=== PATIENT | male | born 1970 | race Caucasian/White ===

== ENCOUNTER 2017-05-15 13:47 | Emergency (ER) | payer MEDICARE, MEDICAID ==
[~2017-05-15] VITALS: Ht 185.4 cm; Wt 90.0 kg
[~2017-05-15 13:47] MED LIST: BACI15OI TOP; CLIN-80 PO
[2017-05-15 14:00] VITALS: BP 119/83
[2017-05-15] MEDS ORDERED: LIDOcaine 1% 30ml preserv. free vial IJ ONE (14:35)
[2017-05-15] MEDS ORDERED: TETanus/Pertussis (Acell)/Diphther VAC/PF (Tdap-Adult) 0.5ml syringe IM ONE (14:35)
[2017-05-15] MEDS ORDERED: CEPH500C2 PO (14:59)
== END 2017-05-15 15:08 | disposition home or self-care (01) ==
LOC: ER 13:48
DX: S61.217A Laceration without foreign body of left little finger without damage to nail, initial encounter (principal); Z88.2 Allergy status to sulfonamides; W26.8XXA Contact with other sharp object(s), not elsewhere classified, initial encounter; Y93.89 Activity, other specified; Y92.89 Other specified places as the place of occurrence of the external cause; Y99.8 Other external cause status
CPT/HCPCS: 12001; 90471; 90715; 99283; A6222; J3490

== ENCOUNTER 2018-11-06 20:23 | Emergency (ER) | payer MEDICARE, MEDICAID ==
[~2018-11-06] VITALS: Ht 185.4 cm; Wt 111.4 kg
[~2018-11-06 20:23] MED LIST changes: -CLIN-80 PO; +CLIN-96 PO
[2018-11-06] MEDS ORDERED: dexamethasone sod phosphate 10mg/ml inj IM STA (20:41)
[2018-11-06] MEDS ORDERED: AZIT250T83 PO (20:42)
[2018-11-06 21:23] VITALS: BP 150/95
== END 2018-11-06 21:28 | disposition home or self-care (01) ==
LOC: ER 20:24
DX: H66.92 Otitis media, unspecified, left ear (principal); N40.0 Benign prostatic hyperplasia without lower urinary tract symptoms; Z88.8 Allergy status to other drugs, medicaments and biological substances; Z79.2 Long term (current) use of antibiotics
CPT/HCPCS: 96372; 99283; J1100

== ENCOUNTER 2019-01-17 16:23 | Emergency (ER) | payer MEDICAID, MEDICARE ==
[~2019-01-17] VITALS: Ht 185.4 cm; Wt 109.1 kg
[~2019-01-17 16:23] MED LIST changes: +CLIN-90 PO; -CLIN-96 PO
[2019-01-17] MEDS ORDERED: AZIT500T2 PO (17:18)
[2019-01-17] MEDS ORDERED: azithromycin 250mg tablet PO ONE (17:20)
[2019-01-17] MEDS ORDERED: ketorolac trometh inj. 60 MG/2 ML VIAL IM ONE (17:25)
[2019-01-17 18:28] VITALS: BP 138/77
== END 2019-01-17 18:28 | disposition home or self-care (01) ==
LOC: ER 16:23
DX: H66.92 Otitis media, unspecified, left ear (principal); Z98.890 Other specified postprocedural states; Z88.2 Allergy status to sulfonamides; Z88.1 Allergy status to other antibiotic agents; Z88.8 Allergy status to other drugs, medicaments and biological substances; Z79.2 Long term (current) use of antibiotics
CPT/HCPCS: 96372; 99283; J1885

== ENCOUNTER 2019-03-01 15:31 | Emergency (ER) | payer MEDICARE, MEDICAID ==
[~2019-03-01] VITALS: Ht 185.4 cm; Wt 109.9 kg
[2019-03-01 15:35] VITALS: BP 147/87
[2019-03-01] MEDS ORDERED: ketorolac tromethamine 15mg/ml inj. IM ONE (16:55)
[2019-03-01] MEDS ORDERED: AZIT250T83 PO (16:59)
== END 2019-03-01 17:24 | disposition home or self-care (01) ==
LOC: ER 15:31
DX: H92.02 Otalgia, left ear (principal); Z98.890 Other specified postprocedural states; Z88.1 Allergy status to other antibiotic agents; Z88.8 Allergy status to other drugs, medicaments and biological substances
CPT/HCPCS: 96372; 99283; J1885

== ENCOUNTER 2019-04-06 13:27 | Emergency (ER) | payer MEDICARE, MEDICAID ==
[~2019-04-06] VITALS: Ht 185.4 cm; Wt 107.0 kg
[2019-04-06 13:41] VITALS: BP 138/91
[2019-04-06] MEDS ORDERED: LIDOcaine 1% W/epiNEPHrine 1:200,000 10ml vial IJ ONE (14:20)
[2019-04-06] MEDS ORDERED: CLIN300C53 PO (14:50)
== END 2019-04-06 15:17 | disposition home or self-care (01) ==
LOC: ER 13:27
DX: L02.31 Cutaneous abscess of buttock (principal); Z98.890 Other specified postprocedural states; Z88.1 Allergy status to other antibiotic agents; Z88.8 Allergy status to other drugs, medicaments and biological substances
CPT/HCPCS: 10060; 99283

== ENCOUNTER 2019-04-09 21:31 | Emergency (ER) | payer MEDICARE, MEDICAID ==
[~2019-04-09 21:31] MED LIST changes: +CLIN300C53 PO
== END 2019-04-09 22:38 | disposition left against medical advice (07) ==
LOC: ER 21:31
DX: L02.91 Cutaneous abscess, unspecified (principal); Z53.21 Procedure and treatment not carried out due to patient leaving prior to being seen by health care provider

== ENCOUNTER 2019-04-19 13:53 | Emergency (ER) | payer MEDICARE, MEDICAID ==
[~2019-04-19] VITALS: Ht 185.4 cm; Wt 108.0 kg
[~2019-04-19 13:53] MED LIST changes: -CLIN300C53 PO
[2019-04-19 14:15] VITALS: BP 148/84
[2019-04-19 14:41] LABS: CLARITY,URINE CLEAR (Clear); COLOR,URINE YELLOW (Yellow); GLUCOSE, URINE NEGATIVE (Neg); KETONES,URINE NEGATIVE (Neg); LEUKOCYTE ESTERASE ,URINE NEGATIVE (Neg); NITRITES, URINE NEGATIVE (Neg); OCCULT BLOOD,URINE NEGATIVE (Neg); PROTEIN,URINE NEGATIVE (Neg); UROBILINOGEN,URINE 0.2 E.U/dL (0.2-1.0)
[2019-04-19 14:48] LABS: UA COLLECTION TYPE CLN CATCH MIDSTREAM
[2019-04-19] MEDS ORDERED: ketorolac trometh inj. 60 MG/2 ML VIAL IM ONE (15:20)
== END 2019-04-19 15:40 | disposition home or self-care (01) ==
LOC: ER 13:55
DX: M54.9 Dorsalgia, unspecified (principal); R10.9 Unspecified abdominal pain; Z98.890 Other specified postprocedural states; Z88.2 Allergy status to sulfonamides; Z88.8 Allergy status to other drugs, medicaments and biological substances; Z79.899 Other long term (current) drug therapy
CPT/HCPCS: 81003; 96372; 99283; J1885

== ENCOUNTER 2019-05-28 22:18 | Emergency (ER) | payer MEDICARE, MEDICAID ==
[~2019-05-28] VITALS: Ht 182.9 cm; Wt 106.8 kg
[~2019-05-28 22:18] MED LIST changes: -CLIN-90 PO; +CLIN-97 PO
[2019-05-28] MEDS ORDERED: CLIN-97 PO (22:50)
[2019-05-28 23:09] VITALS: BP 162/95
--- NOTE | 2019-05-29 13:20 | NUR ---
PT CALLED IN STATING THE RX HE WAS GIVEN LAST NIGHT HAD HIS LAST NAME SPELLED "KIPPER." REVIEWED CHART PT WAS REG "KIPPER" HAS BEEN CORRECTED TO CORRECT SPELLING IN THE COMPUTER. CALLED RX WITH CORRECT SPELLING OF LAST NAME INTO [facility] [address] AT 1311.
== END 2019-05-28 23:10 | disposition home or self-care (01) ==
LOC: ER 22:19
DX: L02.416 Cutaneous abscess of left lower limb (principal); Z86.14 Personal history of Methicillin resistant Staphylococcus aureus infection; Z88.2 Allergy status to sulfonamides; Z88.8 Allergy status to other drugs, medicaments and biological substances; Z79.2 Long term (current) use of antibiotics; Z79.899 Other long term (current) drug therapy
CPT/HCPCS: 99283

== ENCOUNTER 2019-07-01 17:16 | Emergency (ER) | payer MEDICARE, MEDICAID ==
[~2019-07-01] VITALS: Ht 185.4 cm; Wt 109.0 kg
[2019-07-01 17:22] VITALS: BP 135/71
[2019-07-01] MEDS ORDERED: clindamycin 150mg capsule PO ONE (17:40)
[2019-07-01] MEDS ORDERED: ketorolac trometh inj. 60 MG/2 ML VIAL IM ONE (17:45)
[2019-07-01] MEDS ORDERED: TETanus/Pertussis (Acell)/Diphther VAC/PF (Tdap-Adult) 0.5ml syringe IMVAC ONE (17:55)
[2019-07-01] MEDS ORDERED: CLIN150C2 PO (18:26)
== END 2019-07-01 18:29 | disposition home or self-care (01) ==
LOC: ER 17:17
DX: L03.012 Cellulitis of left finger (principal); M25.442 Effusion, left hand; M79.645 Pain in left finger(s); Z86.14 Personal history of Methicillin resistant Staphylococcus aureus infection; Z98.890 Other specified postprocedural states; Z79.2 Long term (current) use of antibiotics; Z79.899 Other long term (current) drug therapy
CPT/HCPCS: 73140; 90471; 90715; 96372; 99284; J1885

== ENCOUNTER 2019-07-03 18:24 | Emergency (ER) | payer MEDICARE, MEDICAID ==
[~2019-07-03] VITALS: Ht 185.4 cm; Wt 108.5 kg
[~2019-07-03 18:24] MED LIST changes: +CLIN150C2 PO
[2019-07-03 18:51] VITALS: BP 156/81
== END 2019-07-03 20:36 | disposition home or self-care (01) ==
LOC: ER 18:25
DX: L02.512 Cutaneous abscess of left hand (principal); Z86.14 Personal history of Methicillin resistant Staphylococcus aureus infection; Z98.890 Other specified postprocedural states; Z88.3 Allergy status to other anti-infective agents; Z88.1 Allergy status to other antibiotic agents; Z88.8 Allergy status to other drugs, medicaments and biological substances
CPT/HCPCS: 99284

== ENCOUNTER 2019-07-28 20:00 | Emergency (ER) | payer MEDICARE, MEDICAID ==
[~2019-07-28] VITALS: Ht 182.9 cm; Wt 108.0 kg
[~2019-07-28 20:00] MED LIST changes: -CLIN150C2 PO
[2019-07-28 20:04] VITALS: BP 148/88
[2019-07-28] MEDS ORDERED: fluconazole 100mg tablet PO ONE (20:55)
== END 2019-07-28 21:50 | disposition home or self-care (01) ==
LOC: ER 20:02
DX: L29.0 Pruritus ani (principal); R21 Rash and other nonspecific skin eruption; Z86.14 Personal history of Methicillin resistant Staphylococcus aureus infection; Z98.890 Other specified postprocedural states; Z88.1 Allergy status to other antibiotic agents; Z88.2 Allergy status to sulfonamides; Z88.8 Allergy status to other drugs, medicaments and biological substances; Z79.2 Long term (current) use of antibiotics
CPT/HCPCS: 99283

== ENCOUNTER 2019-11-07 16:02 | Emergency (ER) | payer MEDICARE, MEDICAID ==
[~2019-11-07] VITALS: Ht 182.9 cm; Wt 109.1 kg
[2019-11-07] MEDS ORDERED: NEOM10DR45 OT (17:13)
[2019-11-07 17:23] VITALS: BP 125/70
== END 2019-11-07 17:25 | disposition home or self-care (01) ==
LOC: ER 16:02
DX: H60.92 Unspecified otitis externa, left ear (principal); H91.92 Unspecified hearing loss, left ear; Z86.14 Personal history of Methicillin resistant Staphylococcus aureus infection; Z98.890 Other specified postprocedural states; Z88.8 Allergy status to other drugs, medicaments and biological substances; Z79.2 Long term (current) use of antibiotics; Z79.899 Other long term (current) drug therapy
CPT/HCPCS: 99283

== ENCOUNTER 2020-02-08 20:13 | Emergency (ER) | payer MEDICARE, MEDICAID ==
[~2020-02-08] VITALS: Ht 182.9 cm; Wt 109.1 kg
[2020-02-08 20:14] VITALS: BP 135/90
[2020-02-08] MEDS ORDERED: CEPH500C5 PO (20:55)
[2020-02-09] MEDS ORDERED: DOXY100C43 PO ×2 (20:56→21:42)
== END 2020-02-08 21:38 | disposition home or self-care (01) ==
LOC: ER 20:13
DX: L03.113 Cellulitis of right upper limb (principal); F17.200 Nicotine dependence, unspecified, uncomplicated; Z88.2 Allergy status to sulfonamides; Z88.8 Allergy status to other drugs, medicaments and biological substances; Z79.899 Other long term (current) drug therapy
CPT/HCPCS: 99283

== ENCOUNTER 2020-10-22 17:33 | Emergency (ER) | payer MEDICARE, MEDICAID ==
[~2020-10-22] VITALS: Ht 185.4 cm; Wt 106.8 kg
[~2020-10-22 17:33] MED LIST changes: +CEPH-585 PO; +DOXY100C43 PO
[2020-10-22 17:44] VITALS: BP 152/97
[2020-10-22] MEDS ORDERED: MECL-159 PO (18:37)
== END 2020-10-22 19:46 | disposition home or self-care (01) ==
LOC: ER 17:33
DX: H81.10 Benign paroxysmal vertigo, unspecified ear (principal); R11.2 Nausea with vomiting, unspecified; N40.0 Benign prostatic hyperplasia without lower urinary tract symptoms; Z86.14 Personal history of Methicillin resistant Staphylococcus aureus infection; Z98.890 Other specified postprocedural states; Z88.2 Allergy status to sulfonamides; Z88.8 Allergy status to other drugs, medicaments and biological substances; Z79.2 Long term (current) use of antibiotics; Z79.899 Other long term (current) drug therapy
CPT/HCPCS: 99282

== ENCOUNTER 2020-12-24 15:17 | Emergency (ER) | payer MEDICARE, MEDICAID ==
[~2020-12-24] VITALS: Ht 185.4 cm; Wt 111.4 kg
[~2020-12-24 15:17] MED LIST changes: +MECL-159 PO
[2020-12-24 16:13] VITALS: BP 153/116
== END 2020-12-24 17:44 | disposition home or self-care (01) ==
LOC: ER 15:19
DX: B34.9 Viral infection, unspecified (principal); R51.9 Headache, unspecified; R05.9 Cough, unspecified; R09.89 Other specified symptoms and signs involving the circulatory and respiratory systems; Z86.14 Personal history of Methicillin resistant Staphylococcus aureus infection; Z98.890 Other specified postprocedural states; Z88.1 Allergy status to other antibiotic agents; Z88.8 Allergy status to other drugs, medicaments and biological substances; Z79.2 Long term (current) use of antibiotics; Z79.899 Other long term (current) drug therapy
CPT/HCPCS: 99282

== ENCOUNTER 2021-05-02 14:30 | Outpatient (CLI) | payer MEDICARE, MEDICAID ==
[~2021-05-02] VITALS: Ht 185.4 cm; Wt 111.1 kg
[~2021-05-02 14:30] MED LIST changes: -CEPH-585 PO
[2021-05-02] MEDS ORDERED: AZO1OS EACHEYE (15:53)
[2021-05-02] MEDS ORDERED: BACL-11 PO (15:53)
[2021-05-02] MEDS ORDERED: [UNRECOGNIZED DRUG - OTHER] LEFT EAR (15:53)
[2021-05-02] MEDS ORDERED: LORA10CA PO (15:53)
[2021-05-02] MEDS ORDERED: MELO15TA13 PO (15:53)
[2021-05-02] MEDS ORDERED: FLUT16SP2 BOTHNARES (15:53)
[2021-05-02] MEDS ORDERED: ALPR1TAB2 PO (15:53)
[2021-05-02] MEDS ORDERED: HYDR-3972 PO (15:53)
[2021-05-02 16:05] LABS: BASOPHILS % (AUTO) 0.6 % (0-1); EOSINOPHILS # (AUTO) 0.4 X10'3 (0-0.9); EOSINOPHILS % (AUTO) 5.6 % (0-6); LYMPHOCYTES % (AUTO) 25.1 % (21-51); MEAN CORPUSCULAR HGB CONC 34.1 g/dL (33.0-36.5); MEAN CORPUSCULAR VOLUME 82.2 FL (78-98); MEAN PLATELET VOLUME 8.5 FL (7.4-10.4); MONOCYTES # (AUTO) 0.5 X10'3 (0-0.9); MONOCYTES % (AUTO) 6.8 % (2-12); NEUTROPHILS # (AUTO) 4.8 X10'3 (1.8-7.7); NEUTROPHILS % (AUTO) 61.9 % (42-75); PRE OP HEMATOCRIT 53.8 % (42.0-52.0); PRE OP PLATELET COUNT 176 X10'3 (140-440); RED BLOOD COUNT 6.55 X10'6 (4.70-6.10); RED CELL DISTRIBUTION WIDTH 14.5 % (11.5-14.5)
[2021-05-02 16:09] LABS: PRE OP HEMOGLOBIN 18.3 g/dL (14.0-17.9)
[2021-05-02 16:15] LABS: PRE OP PROTIME 10.4 SECONDS (9.0-12.0)
[2021-05-02 16:23] LABS: ALBUMIN/GLOBULIN RATIO 1.1 (1.1-1.5); ALKALINE PHOSPHATASE 45 IU/L (46-116); BLOOD UREA NITROGEN 21 MG/DL (7-18); BUN/CREATININE RATIO 17.1 (5.4-32.0); CALCIUM 9.4 MG/DL (8.5-10.1); CHLORIDE 102 MMOL/L (99-107); CREATININE 1.23 MG/DL (0.60-1.10); PRE OP ALT 32 U/L (30-65); PRE OP ANION GAP 7 (8-16); PRE OP AST 17 U/L (10-37); PRE OP BILIRUB, TOTAL 0.6 MG/DL (0.0-1.0); PRE OP GLUCOSE 104 MG/DL (70-104); PRE OP SODIUM 140 MMOL/L (135-145); TOTAL CARBON DIOXIDE 31.1 MMOL/L (24-32); TOTAL PROTEIN 7.5 G/DL (6.4-8.2); eGFR 62 ML/MIN
[2021-05-09] MEDS ORDERED: ringers solution, lacted 1,000 ML IV SCH (05:00)
[2021-05-09] MEDS ORDERED: famotidine 20mg tablet PO ONE (05:30)
[2021-05-09] MEDS ORDERED: diazepam 5mg tablet PO ONE (05:30)
[2021-05-09] MEDS ORDERED: oxymetazoline 15 ML nasal spray NS ONE (05:30)
[2021-06-07] MEDS ORDERED: AMLO5TAB16 PO (15:46)
== END 2021-05-02 23:59 | disposition home or self-care (01) ==
LOC: PRE-OP 14:30 → EDSTATUS 05-09 08:00
PROVIDERS: ATTEND Otolaryngology
DX: Z01.812 Encounter for preprocedural laboratory examination (principal); Z20.822 Contact with and (suspected) exposure to COVID-19
CPT/HCPCS: 36415; 80053; 85025; 85576; 85610; 85730; 93005; J7120; U0003; U0005

== ENCOUNTER 2021-06-13 05:58 | Day surgery (SDC) | payer MEDICARE, MEDICAID ==
[2021-06-07 16:11] LABS: BASOPHILS # (AUTO) 0.1 X10'3 (0-0.2); BASOPHILS % (AUTO) 0.9 % (0-1); EOSINOPHILS # (AUTO) 0.4 X10'3 (0-0.9); LYMPHOCYTES # (AUTO) 2.3 X10'3 (1.1-4.8); LYMPHOCYTES % (AUTO) 33.4 % (21-51); MEAN CORPUSCULAR HEMOGLOBIN 27.9 PG (27.0-31.0); MEAN CORPUSCULAR HGB CONC 34.1 g/dL (33.0-36.5); MEAN CORPUSCULAR VOLUME 81.6 FL (78-98); MEAN PLATELET VOLUME 8.1 FL (7.4-10.4); MONOCYTES # (AUTO) 0.6 X10'3 (0-0.9); MONOCYTES % (AUTO) 8.9 % (2-12); NEUTROPHILS # (AUTO) 3.5 X10'3 (1.8-7.7); NEUTROPHILS % (AUTO) 50.8 % (42-75); PRE OP HEMATOCRIT 53.1 % (42.0-52.0); PRE OP PLATELET COUNT 172 X10'3 (140-440); RED CELL DISTRIBUTION WIDTH 13.8 % (11.5-14.5)
[2021-06-07 16:14] LABS: PRE OP HEMOGLOBIN 18.1 g/dL (14.0-17.9)
[2021-06-07 16:24] LABS: PRE OP INR 1.1 INR; PRE OP PROTIME 10.9 SECONDS (9.0-12.0)
[2021-06-07 16:27] LABS: ALBUMIN 4.3 G/DL (3.4-5.0); ALBUMIN/GLOBULIN RATIO 1.2 (1.1-1.5); ALKALINE PHOSPHATASE 45 IU/L (46-116); BLOOD UREA NITROGEN 24 MG/DL (7-18); CHLORIDE 101 MMOL/L (99-107); CREATININE 1.33 MG/DL (0.60-1.10); PRE OP ALT 42 U/L (30-65); PRE OP ANION GAP 9 (8-16); PRE OP AST 35 U/L (10-37); PRE OP BILIRUB, TOTAL 0.8 MG/DL (0.0-1.0); PRE OP GLUCOSE 93 MG/DL (70-104); PRE OP POTASSIUM 3.7 MMOL/L (3.4-5.1); PRE OP SODIUM 138 MMOL/L (135-145); TOTAL CARBON DIOXIDE 27.7 MMOL/L (24-32); TOTAL PROTEIN 7.9 G/DL (6.4-8.2); eGFR 56 ML/MIN
[~2021-06-13] VITALS: Ht 185.4 cm; Wt 116.0 kg
[2021-06-13] VITALS (16 sets, daily range): BP systolic 131–159; BP diastolic 85–107
--- NOTE | 2021-06-13 03:36 | NUR ---
PT HAS MEDT ALL DC CRITERIA. IV DC'D WITH CANULA INTACT. DC INSTRUCTIONS REVIEWED ALONG WITH DR HEARN SPECIFIC INSTRUCTIONS. PT GIVEN EXTRA 4X4 AND IRRIGATION 60CC SYRINGE WITH BASIN, OCEAN SPRAY, AFRIN AND MUPIROCIN. PT VERBALIZED UNDERSTANDING OF ALL INSTRUCTIONS AND REFUSED RX OF PAIN MEDICATION FROM DR MANCILLA. PT WHEELED OUT TO GET PERSONAL BELONGINGS FROM REGISTRATION. PT BECAME UPSET WHEN HE ASKED IF HE COULD GET UP FROM THE WHEELCHAIR TO PUT IN HIS CONTACTS IN THE MEN'S BATHROOM, I EXPLAINED WE DO NOT LIKE PT'S TO GET UP OUT OF THE WHEELCHAIR UNTIL WE GET THEM TO THEIR PRIVATE VEHICLE TO GO HOME. PT BECAME UPSET AND ASKED WHY I DIDN'T LET HIM PUT HIS CONTACTS WHILE WE WERE IN PACU. I EXPLAINED HE NEVER ASKED ME TO PUT THEM IN WHILE WE WERE IN PACU, HE CALLED ME A LIAR. HE RESPONDED WITH "YOU WERE SO GREAT UPSTAIRS, WHY ARE YOU ARGUING WITH THE PATIENT, I'M GOING TO CALL THE FIRE MANAGEMENT TECHNICIAN AND REPORT YOU." I TOLD HIM THAT I WOULD WHEEL HIM TO THE BATHROOM AFTER HE PICKED UP HIS BELONGINGS FROM REGISTRATION. HE STARTED YELLING AT ME SO I SAID FINE I WILL TAKE YOU TO THE BATHROOM. PT LEFT REGISTRATION WAITING TO GIVE BACK HIS BELONGINGS. PT WENT TO THE MEN'S BATHROOM AND PUT IN HIS CONTACT. PT'S RIDE WAITING, I WHEELED PT TO VEHICLE AND WISHED HIM A SPEEDY RECOVERY. Addendum: 06/13/21 at 1416 by Marisela Obando RN, RN Amended: Links added.
[~2021-06-13 05:58] MED LIST changes: +ALPR1TAB2 PO; +AMLO5TAB16 PO; +AZO1OS EACHEYE; -BACI15OI TOP; +BACL-11 PO; -CLIN-97 PO; -DOXY100C43 PO; +FLUT16SP2 BOTHNARES; +HYDR-3972 PO; +LORA10CA PO; -MECL-159 PO; +MELO15TA13 PO; +[UNRECOGNIZED DRUG - OTHER] LEFT EAR; +diazepam 5mg tablet PO ONE; +famotidine 20mg tablet PO ONE; +ringers solution, lacted 1,000 ML IV SCH
[2021-06-13] MEDS: oxymetazoline 15 ML nasal spray NS PRN ×3 (08:50→12:54)
[2021-06-13] MEDS ORDERED: hydrALAZINE 20mg/ml inj. IV PRN (09:00)
[2021-06-13] MEDS ORDERED: morphine 2 MG/ML inj. syringe IV PRN (09:00)
[2021-06-13] MEDS ORDERED: ringers solution, lacted 1,000 ML IV SCH (09:00)
[2021-06-13] MEDS ORDERED: labetalol 5mg/ml 20ml inj. IV PRN (09:00)
[2021-06-13] MEDS ORDERED: ondansetron/PF 4mg/2ml inj IV PRN (09:00)
[2021-06-13] MEDS ORDERED: meperidine/PF 25mg/ml syringe IV PRN (09:00)
[2021-06-13] MEDS ORDERED: fentaNYL/PF 50MCG/1 ML 2ML syringe ONE (09:05)
[2021-06-13] MEDS ORDERED: midazolam 1 mg/ML 2ml injection ONE (09:05)
[2021-06-13] MEDS ORDERED: LIDOcaine 1% W/epiNEPHrine 1:100,000 20ml vial IJ ONE (09:30)
[2021-06-13] MEDS ORDERED: cocaine 4% topical solution 4ml bottle TP ONE (09:30)
[2021-06-13] MEDS ORDERED: mupirocin 2% cream 15gm TP ONE (09:30)
[2021-06-13] MEDS ORDERED: oxymetazoline 15 ML nasal spray NS ONE (09:30)
[2021-06-13] MEDS ORDERED: rocuronium 10mg/ml inj IV ONE (09:45)
[2021-06-13] MEDS ORDERED: labetalol 20mg/4ml (5mg/ml) syringe IV ONE (09:45)
[2021-06-13] MEDS ORDERED: sevoflurane 250ml liquid IH ONE (09:45)
--- NOTE | 2021-06-13 11:19 | NUR ---
Received from OR via AIRAM, accompanied by Anesthesiologist DR DANIELS and report given by Anesthesiolgist. PT PRSENTS WITH PIV 20G RIGHT HAND, NASAL PACKIN CDI, VSS. Addendum: 06/13/21 at 1140 by Marisela Obando RN, RN Amended: Links added.
[2021-06-13] MEDS ORDERED: naloxone 0.4 mg/ml inj ONE (11:28)
[2021-06-13] MEDS ORDERED: ePHEDrine 50MG/ML INJ. ONE (11:28)
[2021-06-13] MEDS ORDERED: propofol inj 20 ML IV ONE (11:28)
[2021-06-13] MEDS ORDERED: dexamethasone sod phosphate 4mg/ml inj. ONE (11:28)
[2021-06-13] MEDS ORDERED: LIDOcaine 2% (20mg/ml) 5ml vial ONE (11:28)
[2021-06-13] MEDS ORDERED: ondansetron/PF 4mg/2ml inj ONE (11:28)
[2021-06-13] MEDS ORDERED: acetaminophen 1,000mg/100ml IV 100 ML IV ONE (11:45)
[2021-06-13] MEDS: morphine 4 MG/ML inj SYRINge IV PRN ×2 (11:45→11:52)
[2021-06-13] MEDS ORDERED: salt irrigation nasal spray 45 ML SPRAY NS PRN (11:55)
[2021-06-13] MEDS: meperidine/PF 25mg/ml syringe IV PRN ×2 (11:57→12:05)
[2021-06-13] MEDS ORDERED: HYDROcodone/acetaminophen 10/325mg tab PO ONE (12:25)
== END 2021-06-13 13:36 | disposition home or self-care (01) ==
LOC: PAS 05:58
PROVIDERS: ATTEND Otolaryngology
DX: J34.2 Deviated nasal septum (principal); J34.3 Hypertrophy of nasal turbinates; J33.8 Other polyp of sinus; J32.8 Other chronic sinusitis; Z20.822 Contact with and (suspected) exposure to COVID-19; Z79.899 Other long term (current) drug therapy; Z79.01 Long term (current) use of anticoagulants
CPT/HCPCS: 30140; 30520; 31237; 36415; 80053; 82948; 85025; 85576; 85610; 85730; 87635; A6402; C9250; C9803; J0131; J1100; J2175; J2250; J2270; J2310; J2405; J2704; J3010; J3490; J7030; J7040; J7120; U0003; U0005; Z7506; Z7508; Z7512; 88304; 88311; A4618; A7000

== ENCOUNTER 2021-07-04 08:47 | Day surgery (SDC) | payer MEDICARE, MEDICAID ==
[2021-06-28 16:45] LABS: BASOPHILS # (AUTO) 0.1 X10'3 (0-0.2); BASOPHILS % (AUTO) 0.7 % (0-1); EOSINOPHILS # (AUTO) 0.3 X10'3 (0-0.9); EOSINOPHILS % (AUTO) 3.8 % (0-6); LYMPHOCYTES # (AUTO) 2.3 X10'3 (1.1-4.8); LYMPHOCYTES % (AUTO) 27.1 % (21-51); MEAN CORPUSCULAR HEMOGLOBIN 27.9 PG (27.0-31.0); MEAN CORPUSCULAR HGB CONC 33.8 g/dL (33.0-36.5); MEAN CORPUSCULAR VOLUME 82.7 FL (78-98); MEAN PLATELET VOLUME 8.5 FL (7.4-10.4); MONOCYTES # (AUTO) 0.6 X10'3 (0-0.9); MONOCYTES % (AUTO) 7.4 % (2-12); NEUTROPHILS # (AUTO) 5.1 X10'3 (1.8-7.7); PRE OP HEMATOCRIT 53.7 % (42.0-52.0); PRE OP PLATELET COUNT 198 X10'3 (140-440); RED BLOOD COUNT 6.49 X10'6 (4.70-6.10); RED CELL DISTRIBUTION WIDTH 13.8 % (11.5-14.5)
[2021-06-28 16:46] LABS: PRE OP HEMOGLOBIN 18.1 g/dL (14.0-17.9)
[2021-06-28 16:55] LABS: PRE OP PROTIME 10.7 SECONDS (9.0-12.0)
[2021-06-28 17:02] LABS: ALBUMIN 4.1 G/DL (3.4-5.0); ALBUMIN/GLOBULIN RATIO 1.1 (1.1-1.5); ALKALINE PHOSPHATASE 46 IU/L (46-116); BLOOD UREA NITROGEN 21 MG/DL (7-18); BUN/CREATININE RATIO 16.5 (5.4-32.0); CALCIUM 9.5 MG/DL (8.5-10.1); CHLORIDE 101 MMOL/L (99-107); CREATININE 1.27 MG/DL (0.60-1.10); PRE OP ALT 35 U/L (30-65); PRE OP ANION GAP 7 (8-16); PRE OP AST 25 U/L (10-37); PRE OP BILIRUB, TOTAL 0.7 MG/DL (0.0-1.0); PRE OP GLUCOSE 95 MG/DL (70-104); PRE OP SODIUM 140 MMOL/L (135-145); TOTAL PROTEIN 7.9 G/DL (6.4-8.2); eGFR 60 ML/MIN
[~2021-07-04] VITALS: Ht 185.4 cm; Wt 115.0 kg
[~2021-07-04 08:47] MED LIST changes: -AZO1OS EACHEYE; -BACL-11 PO; +BRIN10DR6 EACHEYE; -FLUT16SP2 BOTHNARES; +LIDOcaine 1% W/epiNEPHrine 1:100,000 20ml vial ONE; +MELA5TAB12 PO; -MELO15TA13 PO; +cocaine 4% topical solution 4ml bottle ONE; +mupirocin 2% ointment 22GM ONE; +oxymetazoline 15 ML nasal spray NS ONE; +oxymetazoline 15 ML nasal spray NS PRN
[2021-07-04] MEDS ORDERED: ondansetron/PF 4mg/2ml inj IV PRN (09:30)
[2021-07-04] MEDS ORDERED: hydrALAZINE 20mg/ml inj. IV PRN (09:30)
[2021-07-04] MEDS ORDERED: ringers solution, lacted 1,000 ML IV SCH (09:30)
[2021-07-04] MEDS ORDERED: fentaNYL/PF 50MCG/1 ML 2ML syringe IV PRN ×2 (09:30)
[2021-07-04] MEDS ORDERED: labetalol 20mg/4ml (5mg/ml) syringe IV PRN (09:30)
[2021-07-04] MEDS ORDERED: morphine 2 MG/ML inj. syringe IV PRN (09:30)
[2021-07-04] MEDS ORDERED: morphine 4 MG/ML inj SYRINge IV PRN (09:30)
--- NOTE | 2021-07-04 10:29 | NUR ---
PATIENT UPSET WITH ME AND SAYS I WAS RUDE BUT UNABLE TO DETAIL AND REFUSES TO ELABORATE ON WHAT I DID OR SAID WAS RUDE. REQUESTS A DIFFERENT RN AND WANTS TO SPEAK WITH A EDI ARCHITECT OR SIDE TRIMMER. I ASKED RENA TO SPEAK WITH HIM OR SIDE TRIMMER. SHE IS SPEAKING WITH HIM NOW WITH SECURITY AT BEDSIDE.
[2021-07-04 10:30] VITALS: BP 152/115
--- NOTE | 2021-07-04 10:35 | NUR ---
UPON LEAVING THE ROOM AFTER PATIENT STATED HE WANTED A DIFFERENT NURSE AND SPEAK WITH CLIENT SUCCESS SPECIALIST I ASKED HIM IF HE WOULD LIKE ME TO CLOSE THE DOOR OR LEAVE IT OPEN. HE REFUSED TO RESPOND OR REPLY AND INSTEAD FLIPPED ME OFF WITH HIS MIDDLE FINGER GIVING THE BIRD SIGN. I WAS NOT SURE IF THAT MEANT TO CLOSE OR LEAVE THE DOOR OPEN SO I LEFT IT OPEN WHICH ALL OUR PATIENT DOORS USUALLY ARE IN THIS DEPARTMENT.
--- NOTE | 2021-07-04 10:41 | NUR ---
WE ONLY HAVE FEMALE NURSES IN [facility] TODAY FOR PATIENTS AND THEY ARE FEARFUL TO BE IN PATIENTS ROOM TO PREP PATIENT DO TO HIS BEHAVIOR. I HAVE REQUESTED SECURITY TO STAND BY AND BE IN ROOM WITH PATIENT WHILE THE OTHER RN TRYS TO PREP HIM FOR SURGERY.
--- NOTE | 2021-07-04 10:58 | NUR ---
SURGERY CANCELLED AFTER DR MANCILLA SPEAKING WITH PATIENT AND FINDING HIS B/P WAS TO HIGH TO PROCEED WITH SURGERY.
--- NOTE | 2021-07-04 11:02 | NUR ---
PATIENT AGREES TO MONITOR B/P DAILY AT HOME AND WILL RE -SCHEDULE SURGERY AT A LATER DATE. ANOTHER RN WILL ESCORT HIM DOWN WITH SECURITY FOR D/C.
== END 2021-07-04 11:02 | disposition home or self-care (01) ==
LOC: PAS 08:47
PROVIDERS: ATTEND Otolaryngology
DX: J32.9 Chronic sinusitis, unspecified (principal); Z53.8 Procedure and treatment not carried out for other reasons; Z20.822 Contact with and (suspected) exposure to COVID-19; Z79.01 Long term (current) use of anticoagulants; Z88.2 Allergy status to sulfonamides; Z88.8 Allergy status to other drugs, medicaments and biological substances
CPT/HCPCS: 36415; 80053; 85025; 85576; 85610; 85730; 87635; C9803; J3490; U0003; U0005; J7120

== ENCOUNTER 2021-08-01 06:04 | Day surgery (SDC) | payer MEDICARE, MEDICAID ==
[2021-07-26 16:04] LABS: BASOPHILS % (AUTO) 0.6 % (0-1); EOSINOPHILS # (AUTO) 0.4 X10'3 (0-0.9); EOSINOPHILS % (AUTO) 4.9 % (0-6); LYMPHOCYTES # (AUTO) 2.1 X10'3 (1.1-4.8); LYMPHOCYTES % (AUTO) 26.5 % (21-51); MEAN CORPUSCULAR HEMOGLOBIN 27.5 PG (27.0-31.0); MEAN CORPUSCULAR VOLUME 80.7 FL (78-98); MEAN PLATELET VOLUME 8.3 FL (7.4-10.4); MONOCYTES # (AUTO) 0.6 X10'3 (0-0.9); NEUTROPHILS # (AUTO) 4.9 X10'3 (1.8-7.7); PRE OP HEMATOCRIT 53.2 % (42.0-52.0); PRE OP PLATELET COUNT 200 X10'3 (140-440); RED BLOOD COUNT 6.59 X10'6 (4.70-6.10); RED CELL DISTRIBUTION WIDTH 13.9 % (11.5-14.5)
[2021-07-26 16:12] LABS: PRE OP HEMOGLOBIN 18.1 g/dL (14.0-17.9)
[2021-07-26 16:18] LABS: PRE OP PROTIME 10.7 SECONDS (9.0-12.0)
[2021-07-26 16:19] LABS: ALBUMIN 4.2 G/DL (3.4-5.0); ALBUMIN/GLOBULIN RATIO 1.1 (1.1-1.5); ALKALINE PHOSPHATASE 53 IU/L (46-116); BLOOD UREA NITROGEN 23 MG/DL (7-18); BUN/CREATININE RATIO 17.7 (5.4-32.0); CALCIUM 9.4 MG/DL (8.5-10.1); CHLORIDE 102 MMOL/L (99-107); PRE OP ALT 32 U/L (30-65); PRE OP ANION GAP 10 (8-16); PRE OP AST 16 U/L (10-37); PRE OP BILIRUB, TOTAL 0.7 MG/DL (0.0-1.0); PRE OP GLUCOSE 106 MG/DL (70-104); PRE OP SODIUM 140 MMOL/L (135-145); TOTAL CARBON DIOXIDE 27.9 MMOL/L (24-32); eGFR 58 ML/MIN
[~2021-08-01] VITALS: Ht 188 cm; Wt 118.3 kg
[2021-08-01] VITALS (8 sets, daily range): BP systolic 128–153; BP diastolic 77–107
[~2021-08-01 06:04] MED LIST changes: -BRIN10DR6 EACHEYE; -LIDOcaine 1% W/epiNEPHrine 1:100,000 20ml vial ONE; -MELA5TAB12 PO; -[UNRECOGNIZED DRUG - OTHER] LEFT EAR; -cocaine 4% topical solution 4ml bottle ONE; -mupirocin 2% ointment 22GM ONE; -oxymetazoline 15 ML nasal spray NS ONE; -oxymetazoline 15 ML nasal spray NS PRN
[2021-08-01] MEDS ORDERED: LIDOcaine 1% W/epiNEPHrine 1:100,000 20ml vial ONE (06:24)
[2021-08-01] MEDS ORDERED: mupirocin 2% ointment 22GM ONE (06:24)
[2021-08-01] MEDS ORDERED: cocaine 4% topical solution 4ml bottle ONE (06:24)
[2021-08-01] MEDS ORDERED: oxymetazoline 15 ML nasal spray NS ONE (06:25)
[2021-08-01] MEDS: oxymetazoline 15 ML nasal spray NS ONE ×2 (07:14→08:52)
[2021-08-01] MEDS ORDERED: fentaNYL/PF 50MCG/1 ML 2ML syringe ONE (07:44)
[2021-08-01] MEDS ORDERED: midazolam 1 mg/ML 2ml injection ONE (07:45)
[2021-08-01] MEDS ORDERED: LIDOcaine 2% (20mg/ml) 5ml vial ONE (07:45)
[2021-08-01] MEDS ORDERED: propofol inj 20 ML IV ONE (07:45)
[2021-08-01] MEDS ORDERED: ondansetron/PF 4mg/2ml inj ONE (07:47)
[2021-08-01] MEDS ORDERED: ondansetron/PF 4mg/2ml inj IV PRN (07:55)
[2021-08-01] MEDS ORDERED: ringers solution, lacted 1,000 ML IV SCH (07:55)
[2021-08-01] MEDS ORDERED: morphine 4 MG/ML inj SYRINge IV PRN (07:55)
[2021-08-01] MEDS ORDERED: fentaNYL/PF 50MCG/1 ML 2ML syringe IV PRN ×2 (07:55)
[2021-08-01] MEDS ORDERED: hydrALAZINE 20mg/ml inj. IV PRN (07:55)
[2021-08-01] MEDS ORDERED: labetalol 20mg/4ml (5mg/ml) syringe IV PRN (07:55)
[2021-08-01] MEDS ORDERED: morphine 2 MG/ML inj. syringe IV PRN (07:55)
[2021-08-01] MEDS ORDERED: dexamethasone sod phosphate 10mg/ml inj ONE (08:05)
[2021-08-01] MEDS ORDERED: sevoflurane 250ml liquid IH ONE (08:05)
[2021-08-01] MEDS ORDERED: cloNIDine hcl/PF 100mcg/ml inj ONE (08:05)
[2021-08-01] MEDS ORDERED: labetalol 20mg/4ml (5mg/ml) syringe IV ONE ×3 (09:31→10:04)
--- NOTE | 2021-08-01 09:46 | NUR ---
Received from OR via AIRAM , accompanied by Anesthesiologist JUSTIN and report given by Anesthesiolgist. PATIENT ARRIVED WITH 10L MASK AND AN ORAL AIRWAY IN PLACE. 2 NANAL PACKING. PATIENT AIRWAY REMOVED AT 0955. MD MANCILLA AT BEDSIDE FOR FIRST 5 MINUTES. PATIENT WITH 20G PIV IN RIGHT WRIST AREA. VSS AT THIS TIME. WILL CONTIUE TO ASSESS AND ASSIST. Addendum: 08/01/21 at 0958 by Estuardo Obando RN, RN Amended: Links added.
[2021-08-01] MEDS ORDERED: salt irrigation nasal spray 45 ML SPRAY NS PRN (10:10)
--- NOTE | 2021-08-01 10:36 | NUR ---
ALL DISCHARGE CRITERIA HAS BEEN MET. VSS, PAIN AT A TOLERABLE LEVEL, VOIDING AND ABLE TO SAFELY AMBULATE AND TRANSFER SELF. IV TAKEN OUT WITHOUT ANY COMPLICATIONS. ALL DISCHARGE INSTRUCTIONS COVERED WITH PATIENT AND ALL QUESTIONS ANSWERED. PATIENT TAKEN OUT VIA WHEELCHAIR TO PERSONAL VEHICLE WHERE FAMILY/FRIEND DROVE PATIENT HOME. ALL QUESTIONS ANSWERED. AMBULATED WITH OUT ISSUES. PATIENT AWARE THAT HE WILL NEED A SLEEP STUDY PER MD POPE OBSERVATIONS. Addendum: 08/01/21 at 1053 by Estuardo Obando RN, RN Amended: Links added.
[2021-08-01] MEDS ORDERED: mupirocin 2% nasal ointment 1gm UD NS SCH (13:00)
== END 2021-08-01 10:36 | disposition home or self-care (01) ==
LOC: PAS 06:04
PROVIDERS: ATTEND Otolaryngology
DX: J32.8 Other chronic sinusitis (principal); J33.8 Other polyp of sinus; I10 Essential (primary) hypertension; F41.9 Anxiety disorder, unspecified; E66.9 Obesity, unspecified; Z68.33 Body mass index [BMI] 33.0-33.9, adult; Z20.822 Contact with and (suspected) exposure to COVID-19; Z79.01 Long term (current) use of anticoagulants; Z79.899 Other long term (current) drug therapy; Z72.89 Other problems related to lifestyle; Z98.890 Other specified postprocedural states; Z88.2 Allergy status to sulfonamides; Z88.8 Allergy status to other drugs, medicaments and biological substances
CPT/HCPCS: 31259; 31267; 31276; 36415; 61782; 80053; 82948; 85025; 85576; 85610; 85730; 87635; A6402; C9250; C9803; J0735; J1100; J2250; J2405; J2704; J3010; J3490; J7030; J7040; J7120; U0003; U0005; Z7506; Z7508; Z7512; 88304; 88311; A4618; A7000

== ENCOUNTER 2022-02-26 19:00 | Emergency (ER) | payer MEDICARE, MEDICAID ==
[~2022-02-26] VITALS: Ht 185.4 cm; Wt 111.4 kg
[~2022-02-26 19:00] MED LIST changes: +BRIN10DR6 EACHEYE; +FLUO20DR4 EACH EAR; -diazepam 5mg tablet PO ONE; -famotidine 20mg tablet PO ONE; -ringers solution, lacted 1,000 ML IV SCH
[2022-02-26 19:49] VITALS: BP 159/86
[2022-02-26] MEDS ORDERED: ketorolac trometh inj. 60 MG/2 ML VIAL IM ONE (21:40)
== END 2022-02-26 22:32 | disposition home or self-care (01) ==
LOC: ER 19:01
DX: S16.1XXA Strain of muscle, fascia and tendon at neck level, initial encounter (principal); M54.2 Cervicalgia; Z88.2 Allergy status to sulfonamides; Z88.8 Allergy status to other drugs, medicaments and biological substances; X58.XXXA Exposure to other specified factors, initial encounter; Y93.89 Activity, other specified; Y92.89 Other specified places as the place of occurrence of the external cause; Y99.8 Other external cause status
CPT/HCPCS: 72040; 93005; 96372; 99283; J1885

== ENCOUNTER 2022-03-16 19:03 | Emergency (ER) | payer MEDICARE, MEDICAID ==
[~2022-03-16] VITALS: Ht 185.4 cm; Wt 113.6 kg
[2022-03-16 19:27] LABS: BASOPHILS # (AUTO) 0.1 X10'3 (0-0.2); BASOPHILS % (AUTO) 0.9 % (0-1); EOSINOPHILS # (AUTO) 0.3 X10'3 (0-0.9); EOSINOPHILS % (AUTO) 3.7 % (0-6); HEMATOCRIT 48.8 % (42.0-52.0); HEMOGLOBIN 16.6 g/dl (14.0-17.9); LYMPHOCYTES # (AUTO) 2.2 X10'3 (1.1-4.8); LYMPHOCYTES % (AUTO) 28.4 % (21-51); MEAN CORPUSCULAR HEMOGLOBIN 26.4 PG (27.0-31.0); MEAN CORPUSCULAR VOLUME 77.8 FL (78-98); MEAN PLATELET VOLUME 7.9 FL (7.4-10.4); MONOCYTES # (AUTO) 0.6 X10'3 (0-0.9); NEUTROPHILS # (AUTO) 4.7 X10'3 (1.8-7.7); PLATELET COUNT 205 X10'3 (140-440); RED BLOOD COUNT 6.27 X10'6 (4.70-6.10); RED CELL DISTRIBUTION WIDTH 15.6 % (11.5-14.5); WHITE BLOOD COUNT 7.9 X10'3 (4.5-11.0)
[2022-03-16 19:34] VITALS: BP 149/94
[2022-03-16 19:49] LABS: ALANINE AMINOTRANSFERASE 33 U/L (12-78); ALBUMIN 4.2 G/DL (3.4-5.0); ALBUMIN/GLOBULIN RATIO 1.2 (1.1-1.5); ALKALINE PHOSPHATASE 48 IU/L (46-116); ANION GAP 8 (8-16); ASPARTATE AMINO TRANSFERASE 23 U/L (10-37); BILIRUBIN,TOTAL 0.7 MG/DL (0.1-1.0); BLOOD UREA NITROGEN 20 MG/DL (7-18); BUN/CREATININE RATIO 14.1 (5.4-32.0); CALCIUM 9.5 MG/DL (8.5-10.1); CHLORIDE 101 MMOL/L (99-107); CREATININE 1.42 MG/DL (0.60-1.10); GLUCOSE 121 MG/DL (70-104); POTASSIUM 3.6 MMOL/L (3.5-5.1); SODIUM 137 MMOL/L (135-145); TOTAL CARBON DIOXIDE 28.5 MMOL/L (24-32); TOTAL PROTEIN 7.6 G/DL (6.4-8.2); eGFR 52 ML/MIN
[2022-03-17] MEDS ORDERED: magnesium oxide 400mg tablet PO ONE (04:40)
== END 2022-03-17 04:58 | disposition home or self-care (01) ==
LOC: ER 19:04
DX: N28.9 Disorder of kidney and ureter, unspecified (principal); R60.9 Edema, unspecified; Z88.2 Allergy status to sulfonamides; Z88.8 Allergy status to other drugs, medicaments and biological substances; Z87.891 Personal history of nicotine dependence
CPT/HCPCS: 36415; 80053; 83735; 83880; 84484; 85025; 93005; 99284

== ENCOUNTER 2022-06-22 13:55 | Emergency (ER) | payer MEDICARE, MEDICAID ==
[~2022-06-22] VITALS: Ht 185.4 cm; Wt 111.0 kg
[2022-06-22] MEDS ORDERED: ondansetron/PF 4mg/2ml inj IV ONE (14:30)
[2022-06-22] MEDS ORDERED: morphine 4 MG/ML inj SYRINge IV ONE (14:30)
[2022-06-22] MEDS ORDERED: normal saline 1000ml 1,000 ML IV ONE (14:30)
--- NOTE | 2022-06-22 14:44 | NUR ---
pt to CT
[2022-06-22 14:48] LABS: BASOPHILS % (AUTO) 0.3 % (0-1); EOSINOPHILS # (AUTO) 0.3 X10'3 (0-0.9); EOSINOPHILS % (AUTO) 3.4 % (0-6); HEMATOCRIT 48.2 % (42.0-52.0); HEMOGLOBIN 16.5 g/dl (14.0-17.9); LYMPHOCYTES % (AUTO) 13.1 % (21-51); MEAN CORPUSCULAR HEMOGLOBIN 27.2 PG (27.0-31.0); MEAN CORPUSCULAR HGB CONC 34.1 g/dL (33.0-36.5); MEAN CORPUSCULAR VOLUME 79.6 FL (78-98); MEAN PLATELET VOLUME 8.2 FL (7.4-10.4); MONOCYTES # (AUTO) 0.5 X10'3 (0-0.9); MONOCYTES % (AUTO) 6.2 % (2-12); NEUTROPHILS # (AUTO) 5.8 X10'3 (1.8-7.7); PLATELET COUNT 165 X10'3 (140-440); RED BLOOD COUNT 6.06 X10'6 (4.70-6.10); RED CELL DISTRIBUTION WIDTH 13.9 % (11.5-14.5); WHITE BLOOD COUNT 7.5 X10'3 (4.5-11.0)
[2022-06-22 14:52] LABS: ALANINE AMINOTRANSFERASE 40 U/L (12-78); ALBUMIN 3.4 G/DL (3.4-5.0); ALBUMIN/GLOBULIN RATIO 0.8 (1.1-1.5); ALKALINE PHOSPHATASE 53 IU/L (46-116); ANION GAP 6 (8-16); ASPARTATE AMINO TRANSFERASE 23 U/L (10-37); BILIRUBIN,TOTAL 0.7 MG/DL (0.1-1.0); BLOOD UREA NITROGEN 16 MG/DL (7-18); BUN/CREATININE RATIO 14.4 (10.0-20.0); CALCIUM 9.6 MG/DL (8.5-10.1); CHLORIDE 101 MMOL/L (99-107); CREATININE 1.11 MG/DL (0.60-1.10); GLUCOSE 133 MG/DL (70-104); LIPASE 109 U/L (73-393); POTASSIUM 4.5 MMOL/L (3.5-5.1); SODIUM 138 MMOL/L (135-145); TOTAL CARBON DIOXIDE 30.8 MMOL/L (24-32); TOTAL PROTEIN 7.6 G/DL (6.4-8.2); eGFR 69 ML/MIN
[2022-06-22] MEDS ORDERED: piperacillin/tazo 3.375gm/50ml 50 ML IV ONE (16:00)
[2022-06-22 16:16] LABS: CLARITY,URINE CLEAR (Clear); COLOR,URINE YELLOW (Yellow); GLUCOSE, URINE NEGATIVE (Neg); KETONES,URINE NEGATIVE (Neg); LEUKOCYTE ESTERASE ,URINE NEGATIVE (Neg); NITRITES, URINE NEGATIVE (Neg); OCCULT BLOOD,URINE NEGATIVE (Neg); PROTEIN,URINE NEGATIVE (Neg); UA COLLECTION TYPE CLN CATCH MIDSTREAM; UROBILINOGEN,URINE 0.2 E.U/dL (0.2-1.0)
[2022-06-22] MEDS ORDERED: METR-159 PO (16:43)
[2022-06-22] MEDS ORDERED: LEVO-65 PO (16:43)
[2022-06-22] MEDS ORDERED: HYDR-3965 PO ×2 (16:44→16:47)
[2022-06-22 16:55] VITALS: BP 159/93
== END 2022-06-22 17:02 | disposition home or self-care (01) ==
LOC: ER 13:56
DX: K57.92 Diverticulitis of intestine, part unspecified, without perforation or abscess without bleeding (principal); Z88.2 Allergy status to sulfonamides; Z88.8 Allergy status to other drugs, medicaments and biological substances
CPT/HCPCS: 36415; 74176; 80053; 81003; 83690; 85025; 96361; 96374; 99285; J2543; J7030

== ENCOUNTER 2022-08-09 03:59 | Emergency (ER) | payer MEDICARE, MEDICAID ==
[~2022-08-09] VITALS: Ht 182.9 cm; Wt 110.0 kg
--- NOTE | 2022-08-09 04:22 | NUR ---
35 mL on bladder scan
[2022-08-09] MEDS ORDERED: LidoCAINE 2% Topical Jelly 11mL syringe TOP ONE (04:25)
[2022-08-09 04:29] LABS: CLARITY,URINE SLIGHTLY CLOUDY (Clear); COLOR,URINE YELLOW (Yellow); GLUCOSE, URINE NEGATIVE (Neg); KETONES,URINE TRACE mg/dl (Neg); LEUKOCYTE ESTERASE ,URINE NEGATIVE (Neg); NITRITES, URINE NEGATIVE (Neg); OCCULT BLOOD,URINE NEGATIVE (Neg); PH,URINE 5.5 (4.8-8.0); PROTEIN,URINE TRACE mg/dl (Neg); UROBILINOGEN,URINE 0.2 E.U/dL (0.2-1.0)
[2022-08-09 04:34] LABS: UA COLLECTION TYPE CLN CATCH MIDSTREAM
[2022-08-09 04:35] LABS: CELLULAR CAST 0-4 /LPF (NEGATIVE); MUCUS STRANDS MANY /LPF (Neg); SQUAMOUS EPITHELIAL CELL,UR FEW /LPF (FEW)
[2022-08-09 04:36] LABS: BACTERIA,URINE FEW /HPF (Neg); RBC,URINE 0-2 /HPF (0-2)
[2022-08-09 04:48] LABS: BASOPHILS % (AUTO) 0.1 % (0-1); EOSINOPHILS # (AUTO) 0.3 X10'3 (0-0.9); EOSINOPHILS % (AUTO) 2.4 % (0-6); HEMATOCRIT 49.5 % (42.0-52.0); HEMOGLOBIN 16.6 g/dl (14.0-17.9); LYMPHOCYTES # (AUTO) 2.3 X10'3 (1.1-4.8); LYMPHOCYTES % (AUTO) 17.2 % (21-51); MEAN CORPUSCULAR HEMOGLOBIN 25.9 PG (27.0-31.0); MEAN CORPUSCULAR HGB CONC 33.4 g/dL (33.0-36.5); MEAN CORPUSCULAR VOLUME 77.6 FL (78-98); MEAN PLATELET VOLUME 7.9 FL (7.4-10.4); MONOCYTES # (AUTO) 1.3 X10'3 (0-0.9); MONOCYTES % (AUTO) 9.9 % (2-12); NEUTROPHILS # (AUTO) 9.3 X10'3 (1.8-7.7); NEUTROPHILS % (AUTO) 70.4 % (42-75); PLATELET COUNT 224 X10'3 (140-440); RED BLOOD COUNT 6.38 X10'6 (4.70-6.10); RED CELL DISTRIBUTION WIDTH 14.5 % (11.5-14.5); WHITE BLOOD COUNT 13.2 X10'3 (4.5-11.0)
[2022-08-09 05:01] LABS: ALANINE AMINOTRANSFERASE 40 U/L (12-78); ALBUMIN 3.6 G/DL (3.4-5.0); ALBUMIN/GLOBULIN RATIO 0.8 (1.1-1.5); ALKALINE PHOSPHATASE 69 IU/L (46-116); ANION GAP 8 (8-16); ASPARTATE AMINO TRANSFERASE 20 U/L (10-37); BILIRUBIN,TOTAL 0.5 MG/DL (0.1-1.0); BLOOD UREA NITROGEN 21 MG/DL (7-18); BUN/CREATININE RATIO 18.4 (10.0-20.0); CALCIUM 9.7 MG/DL (8.5-10.1); CHLORIDE 100 MMOL/L (99-107); CREATININE 1.14 MG/DL (0.60-1.10); GLUCOSE 131 MG/DL (70-104); POTASSIUM 4.2 MMOL/L (3.5-5.1); SODIUM 139 MMOL/L (135-145); TOTAL CARBON DIOXIDE 30.6 MMOL/L (24-32); TOTAL PROTEIN 8.1 G/DL (6.4-8.2); eGFR 67 ML/MIN
[2022-08-09] MEDS ORDERED: OXYB5TAB16 PO (05:32)
[2022-08-09 06:20] VITALS: BP 142/95
== END 2022-08-09 06:22 | disposition home or self-care (01) ==
LOC: ER 04:00
DX: N32.89 Other specified disorders of bladder (principal); Z88.2 Allergy status to sulfonamides; Z88.8 Allergy status to other drugs, medicaments and biological substances
CPT/HCPCS: 36415; 80053; 81001; 85025; 87088; 99284

== ENCOUNTER 2023-05-24 17:27 | Emergency (ER) | payer MEDICARE, MEDICAID ==
[~2023-05-24] VITALS: Ht 182.9 cm; Wt 111.3 kg
[~2023-05-24 17:27] MED LIST changes: +OXYB5TAB21 PO
[2023-05-24 17:29] VITALS: BP 126/72; PULSE 115; RESP 16; O2SAT 97
[2023-05-24 17:45] VITALS: TEMP 98
== END 2023-05-24 17:49 | disposition home or self-care (01) ==
LOC: ER 17:28
DX: S76.911A Strain of unspecified muscles, fascia and tendons at thigh level, right thigh, initial encounter (principal); Z88.2 Allergy status to sulfonamides; Z79.899 Other long term (current) drug therapy; Z79.1 Long term (current) use of non-steroidal anti-inflammatories (NSAID); X58.XXXA Exposure to other specified factors, initial encounter; Y93.89 Activity, other specified; Y92.89 Other specified places as the place of occurrence of the external cause; Y99.8 Other external cause status
CPT/HCPCS: 99281

== ENCOUNTER 2023-06-28 13:35 | Emergency (ER) | payer MEDICARE, MEDICAID ==
[~2023-06-28] VITALS: Ht 177.8 cm; Wt 83.9 kg
[2023-06-28 13:36] VITALS: BP 184/114; PULSE 114; RESP 18; TEMP 97.8; O2SAT 98
[2023-06-28 14:36] LABS: LYMPHOCYTES # (AUTO) 2.2 X10'3 (1.1-4.8); MEAN CORPUSCULAR HGB CONC 34.1 g/dL (33.0-36.5); NEUTROPHILS # (AUTO) 4.4 X10'3 (1.8-7.7)
[2023-06-28 14:38] LABS: BASOPHILS % (AUTO) 0.6 % (0-1); EOSINOPHILS # (AUTO) 0.3 X10'3 (0-0.9); EOSINOPHILS % (AUTO) 4.3 % (0-6); HEMATOCRIT 57.1 % (42.0-52.0); LYMPHOCYTES % (AUTO) 29.1 % (21-51); MEAN CORPUSCULAR HEMOGLOBIN 28.7 PG (27.0-31.0); MEAN PLATELET VOLUME 9.4 FL (7.4-10.4); MONOCYTES # (AUTO) 0.6 X10'3 (0-0.9); MONOCYTES % (AUTO) 7.6 % (2-12); NEUTROPHILS % (AUTO) 58.4 % (42-75); PLATELET COUNT 175 X10'3 (140-440); RED CELL DISTRIBUTION WIDTH 14.7 % (11.5-14.5); WHITE BLOOD COUNT 7.5 X10'3 (4.5-11.0)
[2023-06-28 14:42] LABS: HEMOGLOBIN 19.5 g/dl (14.0-17.9)
[2023-06-28 14:57] LABS: ALBUMIN 4.3 G/DL (3.4-5.0); ANION GAP 4 (8-16); BLOOD UREA NITROGEN 18 MG/DL (7-18); BUN/CREATININE RATIO 14.5 (10.0-20.0); CALCIUM 9.8 MG/DL (8.5-10.1); CHLORIDE 100 MMOL/L (99-107); CREATININE 1.24 MG/DL (0.60-1.10); GLUCOSE 129 MG/DL (70-104); PRO BRAIN NATRIURETIC PEPTIDE < 30 PG/ML (0-125); SODIUM 137 MMOL/L (135-145); TOTAL CARBON DIOXIDE 32.7 MMOL/L (24-32); eCRCL 70 ML/MIN; eGFR 61 ML/MIN
[2023-06-28] MEDS ORDERED: acetaminophen 325mg tablet PO PRN (16:55)
[2023-06-28] MEDS ORDERED: ondansetron 4mg rapidly disintigrating tab PO PRN (16:55)
== END 2023-06-28 18:39 | disposition home or self-care (01) ==
LOC: ER 13:36 → ED HOLD 17:07 → ER 18:39
DX: R07.89 Other chest pain (principal); D75.1 Secondary polycythemia; E78.5 Hyperlipidemia, unspecified; I10 Essential (primary) hypertension; Z88.2 Allergy status to sulfonamides; Z79.899 Other long term (current) drug therapy; Z79.1 Long term (current) use of non-steroidal anti-inflammatories (NSAID)
CPT/HCPCS: 36415; 71045; 80048; 83880; 84484; 85025; 93005; 99285; A6258; G0378

== ENCOUNTER 2023-11-12 16:28 | Emergency (ER) | payer MEDICARE, MEDICAID ==
[~2023-11-12] VITALS: Ht 182.9 cm; Wt 111.4 kg
[2023-11-12 16:30] VITALS: BP 128/75; PULSE 99; RESP 17; TEMP 98.4; O2SAT 98
[2023-11-12] MEDS ORDERED: DICL1PAT13 TOP (17:41)
== END 2023-11-12 18:02 | disposition home or self-care (01) ==
LOC: ER 16:28
DX: M25.511 Pain in right shoulder (principal); Z88.2 Allergy status to sulfonamides; Z88.8 Allergy status to other drugs, medicaments and biological substances
CPT/HCPCS: 73030; 99283

== ENCOUNTER 2024-09-04 09:46 | Emergency (ER) | payer MEDICARE, MEDICAID ==
[~2024-09-04] VITALS: Ht 182.9 cm; Wt 86.3 kg
[~2024-09-04 09:46] MED LIST changes: +DICL1PAT13 TOP; -FLUO20DR4 EACH EAR; +[UNRECOGNIZED DRUG - CODE] EACH EAR
[2024-09-04 09:52] VITALS: BP 147/85; PULSE 101; RESP 15; TEMP 97; O2SAT 99
--- NOTE | 2024-09-04 10:07 | Physician Documentation ---
History of Present Illness ~ General Chief Complaint: Abnormal Lab(s) Stated Complaint: ABNORMAL LABS Time Seen by MD: 10:02 Primary Medical Doctor: DEEP GARCIA Source: patient Mode of Arrival: POV Exam Limitations: no limitations History of Present Illness Initial Comments 54-year-old male concerned about low iron has labs from July that show changes to red blood cells with chronic anemia although he is on hormone replacement therapy he is taking iron supplements and has an appointment in a couple of months with his primary care provider. Patient states it could be his PPI as well. Anxious appearing wanting test to look at his iron due to fatigue Medication Reconciliation Allergies: Coded Allergies: sulfamethoxazole (Verified Allergy, Unknown, hives, 06/28/23) trimethoprim (Verified Allergy, Unknown, hives, 06/28/23) Scheduled Amlodipine Besylate (Amlodipine Besylate), 1 TAB PO HS, (Reported) Brinzolamide Opth* (Azopt Opth*), 1 APPLIC EACHEYE TID, (Reported) Diclofenac Epolamine (Flector), 1 PATCH TOP Q12H Fluocinolone Acetonide Oil (Fluocinolone Acetonide Oil), 1 APPLIC EACH EAR HS, (Reported) Hydrocodone Bit/Acetaminophen (Hydrocodon-Acetaminophn 10-325 tablet), 1 TAB PO QID PRN, (Reported) Loratadine (Claritin), 1 CAP PO DAILY, (Reported) Oxybutynin Chloride (Oxybutynin Chloride), 1 TAB PO Q12H Scheduled PRN Alprazolam (Xanax), 1 MG PO DAILY PRN for for anxiety/agitation, (Reported) Past Medical History Past Medical History: Allergic Rhinitis, BPH, MRSA Abscess Past Surgical History: orthopedic surgeries Patient History: FH: heart disease Paternal grandfather Alcohol Use: None Drug Use: none Lives In: Home Occupation: employed Review of Systems All Other Systems at this time: Reviewed and Negative Constitutional: Reports: see HPI Physical Exam Physical Exam Vital Signs: RN Vital Signs have been reviewed: Yes, Temperature: 97.0, Source: Temporal, Heart Rate: 101, Respiratory Rate: 15, BP: 147/85, Pulse Oximetry: 99, Weight: 86.350 General Appearance: alert, WD/WN, no apparent distress Head: normal inspection Face: normal inspection Neck: full range of motion Respiratory: normal breath sounds, no respiratory distress Chest: no accessory muscle use Cardiovascular Appears well perfused Neurologic: oriented x4 Psychiatric: anxiety Skin: normal color, warm/dry Progress Results/Orders Results/Orders Completed Orders - MARISELA MCKOY NP Cbc/Diff (09/04/24 09:56) Vital Signs 09/04/24 09:52 Temp 97.0 Pulse 101 Resp 15 B/P (MAP) 147/85 Pulse Ox 99 Laboratory Tests Test 09/04/24 10:06 White Blood Count 6.5 Red Blood Count 7.26 H Hemoglobin 16.9 Hematocrit 51.4 Mean Corpuscular Volume 70.8 L Mean Corpuscular Hemoglobin 23.2 L Mean Corpuscular Hemoglobin Concent 32.8 L Red Cell Distribution Width 20.7 H Platelet Count 185 Mean Platelet Volume 8.3 Neutrophils (%) (Auto) 41.4 L Lymphocytes (%) (Auto) 40.7 Monocytes (%) (Auto) 11.1 Eosinophils (%) (Auto) 6.0 Basophils (%) (Auto) 0.8 Neutrophils # (Auto) 2.7 Lymphocytes # (Auto) 2.7 Monocytes # (Auto) 0.7 Eosinophils # (Auto) 0.4 Basophils # (Auto) 0.1 CBC Comment Medical Decision Making Findings Patient is taking iron supplements but feels like he is anemic he is on HRT takes a PPI his hemoglobin hematocrit on his labs from July are unremarkable MCV slightly low he is being followed and care for by primary care. Wants to know what his iron levels are Departure Time of Disposition: 10:27 Disposition: 01 HOME / SELF CARE / HOMELESS Impression: Primary Impression: Abnormal laboratory test result Additional Impression: Chronic anemia Discharge Instructions: Iron Deficiency Anemia, Adult, [id number] Additional Instructions: A copy of your labs will be provided for you to follow up with your primary care provider if taking iron does give you better energy continue to do so until you see your provider. Understand that HRT can cause changes to your red blood cells as well as what he described with your PPI. Call primary care if concerns arise to have further lab work done. Referrals: NO PRIMARY CARE PROVIDER (PCP) Education Educated: Patient Educated regarding: diagnosis, treatment, need for follow up Signature Scribe Signature: No scribe Attestation: The note accurately reflects work and decisions made by me.Marisela Mckoy - GLEASON OPERATOR 09/04/24 10:06 MARISELA MCKOY NP Sep 04, 2024 10:07
[2024-09-04 10:20] LABS: MEAN PLATELET VOLUME 8.3 FL (7.4-10.4); RED CELL DISTRIBUTION WIDTH 20.7 % (11.5-14.5)
[2024-09-04 12:02] LABS: PLATELET ESTIMATE NORMAL
== END 2024-09-04 10:59 | disposition home or self-care (01) ==
LOC: ER 09:47
DX: D64.9 Anemia, unspecified (principal); Z88.1 Allergy status to other antibiotic agents; Z88.2 Allergy status to sulfonamides
CPT/HCPCS: 36415; 85008; 85025; 99283

== ENCOUNTER 2025-01-22 15:36 | Emergency (ER) | payer MEDICARE, MEDICAID ==
[~2025-01-22] VITALS: Ht 182.9 cm; Wt 104.5 kg
[2025-01-22 15:40] VITALS: TEMP 97.8
--- NOTE | 2025-01-22 15:44 | Physician Documentation ---
History of Present Illness Stated Complaint: MED REACTION Primary Medical Doctor: DEEP GARCIA HPI Patient is a 54-year-old male that presents to the emergency department for evaluation of nondescript symptoms times 2-3 days. Patient reports he has been generally lethargic feeling not himself did not feel like getting up doing much yesterday late around on the couch all day. Patient reports feeling the same way today. Patient also reports slight shortness of breath here in the triage room. Patient's vital signs are stable. Patient reports starting a new medication for his thyroid 2 weeks ago. Patient reports he was told that the medication could cause depletion of red blood cells patient is concerned about that at this time. No other symptoms reported at this time. Date: Jan 22, 2025 Time: 19:18 Additional note by Iván Anguiano DO: I took over the care of this patient from previous physician. I reviewed any previous notes available, obtain my own history, review of systems and physical examination was performed by myself. This gentleman was examined in bed 12. He is very pleasant 54-year-old gentleman who was started on methimazole for his overactive thyroid. 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 He started his medication two weeks ago. For the last couple of days he was not feeling himself, he was feeling much tired. No chest pain, no difficulty breathing. Denies any headache. Denies any nausea, vomiting, diarrhea, abdominal pain, fevers. No concern for tobacco, alcohol or illicit substances use Medication Reconciliation Allergies: Coded Allergies: sulfamethoxazole (Verified Allergy, Unknown, hives, 06/28/23) trimethoprim (Verified Allergy, Unknown, hives, 06/28/23) Scheduled Amlodipine Besylate (Amlodipine Besylate), 1 TAB PO HS, (Reported) Brinzolamide Opth* (Azopt Opth*), 1 APPLIC EACHEYE TID, (Reported) Diclofenac Epolamine (Flector), 1 PATCH TOP Q12H Fluocinolone Acetonide Oil (Fluocinolone Acetonide Oil), 1 APPLIC EACH EAR HS, (Reported) Hydrocodone Bit/Acetaminophen (Hydrocodon-Acetaminophn 10-325 tablet), 1 TAB PO QID PRN, (Reported) Loratadine (Claritin), 1 CAP PO DAILY, (Reported) Oxybutynin Chloride (Oxybutynin Chloride), 1 TAB PO Q12H Scheduled PRN Alprazolam (Xanax), 1 MG PO DAILY PRN for for anxiety/agitation, (Reported) Past Medical History Past Medical History: Allergic Rhinitis, BPH, MRSA Abscess Past Surgical History: orthopedic surgeries Patient History: FH: heart disease Paternal grandfather Alcohol Use: None Drug Use: none Lives In: Home Occupation: employed Review of Systems ROS 10 point review of systems was performed and unless noted above in HPI is negative for acute process/complaint. Physical Exam Physical Exam GENERAL: Awake, alert, oriented, GCS 15, no apparent distress, non-toxic appearing, answers questions, follows commands appropriately. Examined in bed 12 HEENT: Atraumatic, normocephalic, pupils equal, extraocular muscles intact, sclerae anicteric, mucus membranes moist, oropharynx is clear, no stridor. NECK: supple, full active range of motion, trachea midline, no thyromegaly, no lymphadenopathy, no JVD. CARDIOVASCULAR: regular rate/rhythm, no murmurs/gallops/rubs, Pulses are 2+ in all extremities and symmetric. Capillary refill less than 2 seconds. PULMONARY: Nonlabored, good air movement ,no respiratory distress, speaking in full sentences, clear to auscultation bilaterally, no wheezing, no ronchi, no rales, no accessory muscle use. GASTROINTESTINAL: Soft, non-tender, non-distended, normal active bowel sounds, no organomegaly, no pulsatile masses, no CVA tenderness. NEUROLOGIC: Lucid with normal mental status. Normal facial symmetry. Moves all extremities symmetrically and with purpose. No truncal ataxia. Speech is fluid without evidence of dysarthria or aphasia, no focal deficits appreciated. MUSCULOSKELETAL: There is full range of motion of all extremities. There is no joint pain or joint swelling or joint erythema. There is no muscle pain or tenderness or swelling. EXTREMITIES: warm, well-perfused, no cyanosis, no clubbing, no edema, no acute deformities. Skin: warm, dry, no rashes or lesions, no jaundice, no petechiae orpurpura. No ecchymosis. PSYCHIATRIC: Normal affect, normal insight, normal concentration. Focused exam: [] Medical Decision Making Additional information obtaine: old records Findings Facility Status: ED Holds, E process The plan was discussed with the patient, who demonstrates clear understanding of the plan and is in agreement with the plan unless otherwise noted in the chart. All questions have been answered, all concerns were addressed unless otherwise documented. I was available throughout their ED stay for frequent reassessment and questions. Differential Diagnoses (considered and possible or likely): [Medication side- effect, medication overdose, highly unlikely agranulocytosis, , less likely dehydration, hypoglycemia, electrolyte derangement] ??Differential Diagnoses (considered and unlikely, not requiring evaluation currently): [See above] MDM Data Please see [facility] for the following: Independent Historians and external Records Review. Historian: [Patient] Independent Historians: ?[Record review] Medication Management: [Reviewed medication list] Social History and determinants: [Reviewed] Please see the body of the note for the following: Any independent interpretations of ECG, imaging studies. All vitals signs/haemodynamics, ordered tests were independently reviewed and interpreted by myself. Nursing triage complaint and vitals reviewed, additional nursing notes were reviewed as available and I agree unless otherwise noted or documented in contradiction in the chart Vital Signs: Independently reviewed Labs: Independently interpreted Imaging: Independently interpreted Old Medical Records: Independently reviewed, see HPI for relevant summary and information Pulse Oximetry: [99%] interpreted as [normal on room air] by me [Founder And Ceo: [Regular Rate, Regular rhythm, no ectopy, NSR] reviewed and interpreted by me] Additionally notably showing: [Hemodynamics reviewed. The patient is not febrile, initially tachycardic, no evidence of hypotension respiratory distress. Tachycardia had resolved. CBC shows normal white count, no evidence of a granulocytosis. Chemistry notable for mild dehydration. Troponin is negative twice. Chest x-ray is unremarkable. Thyroid studies show slightly elevated T4, not detectable TSH.] Tests considered but not ordered include: [Advanced imaging has been considerably does not appear to be necessary] Social Determinants of Health Impact: Patient was evaluated in [facility] [place] to healthcare due to below par ratio of patient to medical providers. [] Comorbid Conditions Impacting Present Evaluation and Care/Treatment: [Hyperthyroidism] Management Discussions with other Healthcare Providers: [] Treatment and Disposition Medication Management (Given or considered): []. See EMR for details Consideration for Hospitalization/Escalation/Deescalation of Care: Admission for observation has been considered, [however the patient is able to tolerate p.o., their symptoms are controlled, they are able to rely on oral medications, and their chief complaint/diagnosis can be managed on outpatient basis.] ?ED Course:?[No evidence of thyroid storm at this time.] ?Shared decision making: Patient is hemodynamically stable for discharge home with follow with their primary care provider. [ ] Specific and cautious return precautions provided and discussed with full understanding. Any incidental findings were also discussed and follow up recommendations given. [] All questions answered. Patient/family were able to verbalize back return precautions. Patient/family agree to plan. Copies of imaging and laboratory studies were provided. Code status:?FULL Please see the full Electronic Medical Record for full details of nursing docum entation, medications list, other records of complete past medical history and conditions, vital signs, laboratory studies, and any radiologic study interpretations by radiologists. Portions of this note were completed using [employer] dictation software and as a result there may exist minor errors in spelling. I have reviewed elements of past family and social history and agree as included in note. Differential Dx:Considerations: N/A Departure Disposition: HOME / SELF CARE / HOMELESS ([facility]joy[facility]) Impression: Primary Impression: Feeling tired Additional Impressions: Medication side effect Dehydration Hyperthyroidism Condition: Improved Discharge Instructions: Methimazole Tablets Additional Instructions: Please discuss with your supervisor lens generating whether or not you doses too high and affecting you too much causing the tiredness. Referrals: NO PRIMARY CARE PROVIDER (PCP) Education Educated: Patient Educated regarding: diagnosis, treatment, prognosis, need for follow up Signature Scribe Signature: no scribe Attestation: The note accurately reflects work and decisions made by me.Iván Anguiano DO 01/22/25 19:29 DEEP KHAN Jan 22, 2025 15:44 IVÁN ANGUIANO DO Jan 22, 2025 19:23
--- NOTE | 2025-01-22 15:53 | ELECTROCARDIOGRAPH REPORT ---
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 LUIS ALBERTO Ford Measurements Intervals [place] Rate: 103 P: 62 MI: 151 QRS: 7 QRSD: 101 T: 83 QT: 318 QTc: 416 Interpretive Statements Sinus tachycardia Probable left atrial enlargement Probable anteroseptal infarct, recent Baseline wander in lead(s) V3 Electronically Signed On 01-23-2025 19:22:[address] LUIS ALBERTO Ford Please click the below link to view image of tracing.
--- NOTE | 2025-01-22 16:09 | RADIOLOGY REPORT ---
CHEST RADIOGRAPH Indication: CP Technique: Single frontal view of the chest was obtained COMPARISON: DI CHEST,SINGLE VIEW on DOS: 06/28/23 FINDINGS: Lines and Tubes: None Lungs: Clear Pleura: No effusion. No pneumothorax. Cardiomediastinal contours: Unremarkable Bones: Unremarkable IMPRESSION: No acute disease.
[2025-01-22 17:12] LABS: MEAN PLATELET VOLUME 8.8 FL (7.4-10.4); RED CELL DISTRIBUTION WIDTH 15.3 % (11.5-14.5)
[2025-01-22 17:27] LABS: CREATININE 1.27 MG/DL (0.60-1.10); TOTAL CARBON DIOXIDE 28.2 MMOL/L (24-32); eCRCL 72 ML/MIN; eGFR 59 ML/MIN
[2025-01-22 20:23] VITALS: BP 143/78; PULSE 87; RESP 16; O2SAT 97
== END 2025-01-22 20:25 | disposition home or self-care (01) ==
LOC: ER 15:37
DX: R53.83 Other fatigue (principal); T50.905A Adverse effect of unspecified drugs, medicaments and biological substances, initial encounter; E05.90 Thyrotoxicosis, unspecified without thyrotoxic crisis or storm; E86.0 Dehydration; Z86.14 Personal history of Methicillin resistant Staphylococcus aureus infection; Z88.8 Allergy status to other drugs, medicaments and biological substances; Z79.899 Other long term (current) drug therapy; Z88.2 Allergy status to sulfonamides; Z98.890 Other specified postprocedural states; Y92.89 Other specified places as the place of occurrence of the external cause
CPT/HCPCS: 36415; 71045; 80053; 84439; 84443; 84484; 85025; 93005; 99285